=== PATIENT | male | born 1955 | race Native Hawaiian/Other Pacific Islander ===

== ENCOUNTER 2019-01-26 18:09 | Emergency (ER) | payer OTHER ==
[~2019-01-26] VITALS: Ht 175.3 cm; Wt 51.7 kg
[2019-01-26 19:18] VITALS: BP 121/82; TEMP 97.7
== END 2019-01-26 19:20 | disposition home or self-care (01) ==
LOC: ED 18:09 → EDBD 18:09 → ED 19:20
PROC: 09C47ZZ Extirpation of Matter from Left External Auditory Canal, Via Natural or Artificial Opening (ICD-10-PCS; principal; 2019-01-26)
DX: T16.2XXA Foreign body in left ear, initial encounter (principal)
CPT/HCPCS: 99281